=== PATIENT | female | born 1970 | race African-American/Black ===

== ENCOUNTER 2022-01-03 13:35 | Observation (INO) ==
[2022-01-03] MEDS ORDERED: SODIUM CHLORIDE 0.9% 1,000 ML IV STA (14:12)
[2022-01-03 14:37] LABS: Basophils % 0.6 % (0.0-0.8); Eosinophils # 0.1 10*3/uL (0.0-0.87); Eosinophils % 1.3 % (0.00-10.9); Hematocrit 43.5 VOL% (35.7-47.0); Hemoglobin 14.4 GM/DL (12.0-16.0); Immature Granulocytes % 0.2 %; Immature Granulocytes Absolute 0.01 #; Lymphocytes % 41.9 % (21.3-54.2); Mean Corpuscular HGB Conc 33.1 GM/DL (32-36); Mean Corpuscular Volume 90.1 FL (87-102); Mean Platelet Volume 12.2 FL (9.6-12.0); Monocytes % 5.9 % (1.7-12.7); Neutrophils % 50.1 % (38.7-73.9); Platelet Count 221 T/CUMM (130-400); Red Blood Count 4.83 MC/CUMM (3.8-5.5); Red Cell Distribution Width 13.3 % (9.3-17.3); White Blood Count 4.8 T/CUMM (4-12)
[2022-01-03 14:44] LABS: INR 1.1; PT Patient Result 12.1 SECS (10.5-12.0)
[2022-01-03] MEDS ORDERED: DILTIAZEM 50 MG/10 ML VIAL IV STA (14:48)
[2022-01-03] MEDS ORDERED: DILTIAZEM 25 MG/5 ML VIAL IV ONE (14:51)
[2022-01-03 14:52] LABS: Albumin 3.8 G/DL (3.4-5.0); Bilirubin,Total 0.9 MG/DL (0.20-1.00); Calcium 9.3 MG/DL (8.5-10.1); Osmolality,Calculated 279.3 MOS/KG (273-304); Potassium 3.6 MMOL/L (3.5-5.1); Thyroid Stimulating Hormone 2.14 uIU/ml (0.358-3.74); Total Protein 7.1 G/DL (6.4-8.2)
[2022-01-03] MEDS ORDERED: POTASSIUM CHLORIDE 20 MEQ TABLET PO STA (16:05)
[2022-01-03] MEDS ORDERED: ONDANSETRON 4 MG/2 ML VIAL IV PRN (16:38)
[2022-01-03] MEDS ORDERED: ACETAMINOPHEN 325 MG TABLET PO PRN (16:38)
[2022-01-03] MEDS ORDERED: GLUCAGON 1 MG VIAL IM PRN (16:38)
[2022-01-03] MEDS ORDERED: DEXTROSE 10% 250 ML BAG IV PRN (16:44)
[2022-01-03] MEDS: DILTIAZEM 30 MG TABLET PO SCH ×2 (16:56→21:26)
[2022-01-03 17:29] LABS: Bilirubin,Urine Negative (Negative); Glucose,Urine (UA) Negative (Negative); Ketones,Urine Negative (Negative); Nitrite,Urine Negative (Negative); Protein,Urine Negative; Urine Appearance Clear (Clear); Urine Color Yellow (Yellow); Urine Specific Gravity < 1.005 (1.001-1.035)
[2022-01-03 17:30] LABS: Blood, Urine Trace mg/dL (Negative); Urine Urobilinogen 0.2 EU/DL (<2.0)
[2022-01-03 17:34] LABS: RBC,Urine 6 /HPF (0-4); Squamous Epithelial Cell,Urine Occasional /HPF (0-10)
[2022-01-03 17:36] LABS: Barbiturates Screen,Urine Negative (Negative); Benzodiazepines Screen,Urine Negative (Negative); Cannabinoid Screen,Urine Negative (Negative); Opiate Screen,Urine Negative (Negative); Phencyclidine Screen,Urine Negative (Negative)
[2022-01-03] MEDS: ENOXAPARIN 100 MG/ML SYRINGE SUBCUT SCH (21:26)
[2022-01-03] MEDS: ASCORBIC ACID 500 MG TABLET PO SCH (21:26)
[2022-01-03] MEDS: DOCUSATE SODIUM 100 MG CAPSULE PO SCH (21:26)
[2022-01-03] MEDS: PANTOPRAZOLE 40 MG TABLET PO SCH (21:27)
[2022-01-04 05:21] LABS: Basophils % 0.2 % (0.0-0.8); Eosinophils # 0.1 10*3/uL (0.0-0.87); Eosinophils % 1.4 % (0.00-10.9); Hematocrit 40.2 VOL% (35.7-47.0); Hemoglobin 13.2 GM/DL (12.0-16.0); Immature Granulocytes Absolute 0.05 #; Lymphocytes % 39.8 % (21.3-54.2); Mean Corpuscular HGB Conc 32.8 GM/DL (32-36); Mean Corpuscular Volume 91.4 FL (87-102); Mean Platelet Volume 11.9 FL (9.6-12.0); Monocytes % 6.1 % (1.7-12.7); Neutrophils % 51.5 % (38.7-73.9); Platelet Count 192 T/CUMM (130-400); Red Cell Distribution Width 13.3 % (9.3-17.3); White Blood Count 5.1 T/CUMM (4-12)
[2022-01-04 05:47] LABS: Osmolality,Calculated 276.5 MOS/KG (273-304); Potassium 3.3 MMOL/L (3.5-5.1)
[2022-01-04 05:48] LABS: Risk Ratio 3.88
[2022-01-04] MEDS ORDERED: POTASSIUM CHLORIDE 20 MEQ TABLET PO ONE (07:38)
[2022-01-04] MEDS ORDERED: NEBIVOLOL 5 MG TABLET PO SCH (09:00)
[2022-01-04] MEDS ORDERED: DILTIAZEM CD 120 MG CAPSULE PO SCH (10:00)
[2022-01-04] MEDS: NEBIVOLOL 10 MG TABLET PO SCH (10:27)
[2022-01-04] MEDS: DOCUSATE SODIUM 100 MG CAPSULE PO SCH ×2 (10:27→22:26)
[2022-01-04] MEDS: ASCORBIC ACID 500 MG TABLET PO SCH ×2 (10:28→22:26)
[2022-01-04] MEDS: ENOXAPARIN 100 MG/ML SYRINGE SUBCUT SCH (10:30)
[2022-01-04] MEDS: DILTIAZEM 30 MG TABLET PO SCH (10:36)
[2022-01-04] MEDS ORDERED: METOCLOPRAMIDE 10 MG/2 ML VIAL IV ONE (13:00)
[2022-01-04] MEDS ORDERED: METOPROLOL TARTRATE 5 MG/5 ML VIAL IV ONE (13:30)
[2022-01-04] MEDS: APIXABAN 5 MG TABLET PO SCH (22:26)
[2022-01-04] MEDS: PANTOPRAZOLE 40 MG TABLET PO SCH (22:26)
[2022-01-05 04:40] LABS: Basophils % 0.4 % (0.0-0.8); Eosinophils # 0.1 10*3/uL (0.0-0.87); Eosinophils % 1.7 % (0.00-10.9); Hematocrit 39.7 VOL% (35.7-47.0); Hemoglobin 12.9 GM/DL (12.0-16.0); Immature Granulocytes % 0.2 %; Immature Granulocytes Absolute 0.01 #; Lymphocytes # 2.5 10*3/uL (1.4-4.0); Lymphocytes % 51.4 % (21.3-54.2); Mean Corpuscular HGB Conc 32.5 GM/DL (32-36); Mean Corpuscular Volume 91.1 FL (87-102); Mean Platelet Volume 11.9 FL (9.6-12.0); Monocytes % 5.8 % (1.7-12.7); Neutrophils % 40.5 % (38.7-73.9); Platelet Count 187 T/CUMM (130-400); Red Blood Count 4.36 MC/CUMM (3.8-5.5); Red Cell Distribution Width 13.3 % (9.3-17.3); White Blood Count 4.8 T/CUMM (4-12)
[2022-01-05 05:00] LABS: Calcium 8.6 MG/DL (8.5-10.1); Osmolality,Calculated 277.4 MOS/KG (273-304); Potassium 3.7 MMOL/L (3.5-5.1)
[2022-01-05] MEDS ORDERED: POTASSIUM CHLORIDE 20 MEQ TABLET PO ONE (07:21)
[2022-01-05] MEDS: NEBIVOLOL 10 MG TABLET PO SCH (08:56)
[2022-01-05] MEDS: DOCUSATE SODIUM 100 MG CAPSULE PO SCH (08:57)
[2022-01-05] MEDS: APIXABAN 5 MG TABLET PO SCH (08:57)
[2022-01-05] MEDS: ASCORBIC ACID 500 MG TABLET PO SCH (08:58)
[2022-01-05] MEDS ORDERED: DILTIAZEM CD 180 MG CAPSULE PO SCH (09:00)
[2022-01-05] MEDS ORDERED: NEBIVOLOL 5 MG TABLET PO ONE (09:21)
[2022-01-05 12:13] VITALS: BP 107/73
[2022-01-06] MEDS ORDERED: NEBIVOLOL 5 MG TABLET PO SCH (09:00)
== END 2022-01-05 13:05 | disposition home or self-care (01) ==
LOC: N.ED 13:35 → N.EDINP 13:35 → N.TELEN 20:10
PROVIDERS: ADMIT Internal Medicine; ATTEND Internal Medicine